=== PATIENT | male | born 1970 | race Caucasian/White ===

== ENCOUNTER → 2016-12-23 | Outpatient (CLI) | payer BC, OTHER | END | disposition home or self-care (01) | LOC: C.LABPBG 13:47 | PROVIDERS: ATTEND Internal Medicine | DX: R31.0 Gross hematuria (principal) ==

== ENCOUNTER → 2017-02-14 | Outpatient (CLI) | payer BC | END | disposition home or self-care (01) | LOC: C.PATHSPEC 16:55 | PROVIDERS: ATTEND Urology | DX: R31.0 Gross hematuria (principal) ==

== ENCOUNTER → 2017-03-22 | Outpatient (CLI) | payer BC ==
[~2017-03-22] MED LIST: OPTIRAY 320 IV PRN; PATIENT'S ALLERGY INFO NEEDS ENTERED SCH
--- NOTE | 2017-03-22 15:57 | DIAGNOSTIC IMAGING REPORT ---
ABD/PELVIS COMBO CT DOSE: 622.38 mGy.cm HISTORY: N41.1 Chronic [id number] Gross hematuriano latex allergy, TECHNIQUE: Multiaxial CT images of the abdomen and pelvis were performed pre and post intravenous contrast enhancement. A dose lowering technique was utilized adhering to the principles of ALARA. COMPARISON STUDY: 02/13/2016 FINDINGS: Lung bases are clear. Liver spleen and pancreas enhance uniformly. There is a nonenhancing right renal cyst upper pole right kidney measuring 3 cm. This is unchanged compared to the prior study. 3-dimensional evaluation of the urinary tracts show ureters to be normal in course and caliber. There are no significant filling defects. There bladder is midline. There are several pelvic vascular calcifications unaltered from the prior study. There are findings of mild sigmoid diverticulitis. There is a trace amount pericolonic infiltrative change. No evidence for abscess or collection. IMPRESSION: 1. 3 cm upper pole right renal cyst unaltered from the prior study. 2. No evidence for space-occupying lesion or obstructive process the urinary tracts. 3. Mild sigmoid diverticulitis with no evidence for abscess collection or obstruction. The above report was generated using voice recognition software. It may contain grammatical, syntax or spelling errors. Electronically signed by: Jarrod Moctezuma M.D. 03/22/2017 3:56 PM Dictated Date/Time: 03/22/2017 3:48 PM
== END | disposition home or self-care (01) ==
LOC: C.CTS 15:21
PROVIDERS: ATTEND Urology
DX: R31.0 Gross hematuria (principal); N41.1 Chronic prostatitis

== ENCOUNTER 2017-04-22 19:49 | Observation (INO) | payer BC ==
[~2017-04-22] VITALS: Ht 177.8 cm; Wt 76.5 kg
[2017-04-22] MEDS ORDERED: PANTOprazole SOD 40 MG TAB PO STA (19:59)
[2017-04-22] MEDS ORDERED: METOPROLOL TARTRATE 1 MG/ML VIAL IV STA (19:59)
[2017-04-22] MEDS ORDERED: ALUMINUM/MAGNESIUM SUSP 30 ML UDC PO STA (19:59)
[2017-04-22] MEDS ORDERED: NITROGLYCERIN OINT 2% 1GM PACKET EXT ONE (20:00)
--- NOTE | 2017-04-22 20:08 | EMERGENCY ROOM VISIT NOTE ---
History Report prepared by Christopher: Medardo Hoffman Under the Supervision of: Dr. Misael Horton D.O. First contact with patient: 19:52 Chief Complaint: CHEST PAIN Stated Complaint: CHEST & ESOPHOGEAL BURNING History of Present Illness The patient is a 47 year old male who presents to the Emergency Room with complaints of persistent burning in his chest starting earlier today. The patient states that he was having some burning across his chest. The patient states that earlier he could feel his heart pounding, and he had a high blood pressure. He states that he has no history of hypertension, though he has a family history of hypertension and heart attacks. The patient was given 3 baby aspirin prior to arrival, and he takes an aspirin daily. He notes that he was diaphoretic earlier as well. He additionally states that he has been taking NyQuil and DayQuil recently, and he last took any around noon. The patient denies any abdominal pain. He denies any smoking and excessive alcohol use. The patient has a history of a hernia repair and bilateral knee surgery. Source of History: patient Onset: earlier today Position: chest Quality: burning Timing: other (persistent) Associated Symptoms: + diaphoresis, No abdominal pain Note: Associated symptoms: High blood pressure Review of Systems See HPI for pertinent positives & negatives. A total of 10 systems reviewed and were otherwise negative. Past Medical & Surgical Surgical Problems: (1) H/O hernia repair (2) H/O knee surgery Family History Heart disease Hypertension Social History Marital Status: Housing Status: lives with family Occupation Status: unemployed Current/Historical Medications Scheduled Aspirin (Aspirin Ec), 81 MG PO DAILY Cephalexin Monohydrate (Keflex), 500 MG PO BID Cetirizine (Zyrtec), 10 MG PO DAILY Scheduled PRN Calcium Carbonate (Tums), 1 DOSE PO UD PRN for ACID Ranitidine Hcl (Zantac), 1 TAB PO DAILY PRN for HEARTBURN Allergies Coded Allergies: Amoxicillin (Unverified Adverse Reaction, Intermediate, STOMACH PAIN, ) Ciprofloxacin (Unverified Adverse Reaction, Intermediate, STOMACH PAIN, ) Physical Exam Vital Signs Date Time Temp Pulse Resp B/P (MAP) Pulse Ox O2 Delivery O2 Flow Rate FiO2 04/22/17 21:19 93 20 170/101 96 Room Air 04/22/17 20:31 88 18 181/104 96 Room Air 04/22/17 20:21 92 180/104 04/22/17 20:01 92 04/22/17 19:53 Room Air 04/22/17 19:53 36.8 95 212/119 97 Physical Exam GENERAL: Patient is awake, alert, and in no acute distress. Patient is resting comfortably and showing no signs of anxiety EYES: The conjunctivae are clear. The pupils are round and reactive. EARS, NOSE, MOUTH AND THROAT: The nose is without any evidence of any deformity. Mucous membranes are moist tongue is midline NECK: The neck is nontender and supple. RESPIRATORY: Normal respiratory effort is noted there is no evidence of wheezing rhonchi or rales CARDIOVASCULAR: Regular rate and rhythm noted there no murmurs rubs or gallops normal S1 normal S2 GASTROINTESTINAL: The abdomen is soft. Bowel sounds are present in all quadrants. Abdomen is nontender MUSCULOSKELETAL/EXTREMITIES: There is no evidence of gross deformity full range of motion is noted in the hips and shoulders SKIN: There is no obvious evidence of any rash. There are no petechiae, pallor or cyanosis noted. NEUROLOGIC: Patient is awake alert and oriented x3 Medical Decision & Procedures ER Provider Diagnostic Interpretation: Radiology results as stated below per my review and radiologist interpretation: CHEST ONE VIEW PORTABLE CLINICAL HISTORY: Pain, radiating to the abdomen. COMPARISON STUDY: No previous studies for comparison. FINDINGS: The cardiac and mediastinal contours are normal. There is no evidence of focal pulmonary consolidation. There is no evidence of failure. No pleural effusions are visualized.[ No free intraperitoneal air is visualized. IMPRESSION: No active disease in the chest. Electronically signed by: Nico Candelaria M.D. 04/22/2017 8:23 PM Dictated Date/Time: 04/22/2017 8:23 PM Laboratory Results 04/22/17 19:28 Red Blood Count 5.07, Mean Corpuscular Volume 90.7, Mean Corpuscular Hemoglobin 31.2, Mean Corpuscular Hemoglobin Concent 34.3, Mean Platelet Volume 10.0, Neutrophils (%) (Auto) 67.4, Lymphocytes (%) (Auto) 23.0, Monocytes (%) (Auto) 8.2, Eosinophils (%) (Auto) 1.1, Basophils (%) (Auto) 0.1, Neutrophils # (Auto) 6.08, Lymphocytes # (Auto) 2.08, Monocytes # (Auto) 0.74, Eosinophils # (Auto) 0.10, Basophils # (Auto) 0.01 04/22/17 19:28 Test 04/22/17 19:28 White Blood Count 9.03 K/uL (4.8-10.8) Red Blood Count 5.07 M/uL (4.7-6.1) Hemoglobin 15.8 g/dL (14.0-18.0) Hematocrit 46.0 % (42-52) Mean Corpuscular Volume 90.7 fL (80-100) Mean Corpuscular Hemoglobin 31.2 pg (25-34) Mean Corpuscular Hemoglobin Concent 34.3 g/dl (32-36) Platelet Count 261 K/uL (130-400) Mean Platelet Volume 10.0 fL (7.4-10.4) Neutrophils (%) (Auto) 67.4 % Lymphocytes (%) (Auto) 23.0 % Monocytes (%) (Auto) 8.2 % Eosinophils (%) (Auto) 1.1 % Basophils (%) (Auto) 0.1 % Neutrophils # (Auto) 6.08 K/uL (1.4-6.5) Lymphocytes # (Auto) 2.08 K/uL (1.2-3.4) Monocytes # (Auto) 0.74 K/uL (0.11-0.59) Eosinophils # (Auto) 0.10 K/uL (0-0.5) Basophils # (Auto) 0.01 K/uL (0-0.2) RDW Standard Deviation 42.0 fL (36.4-46.3) RDW Coefficient of Variation 12.8 % (11.5-14.5) Immature Granulocyte % (Auto) 0.2 % Immature Granulocyte # (Auto) 0.02 K/uL (0.00-0.02) Prothrombin Time 10.1 SECONDS (9.0-12.0) Prothromb Time International Ratio 1.0 (0.9-1.1) Activated Partial Thromboplast Time 28.2 SECONDS (21.0-31.0) Partial Thromboplastin Ratio 1.1 Anion Gap 5.0 mmol/L (3-11) Est Creatinine Clear Calc Drug Dose 97.2 ml/min Estimated GFR () 107.3 Estimated GFR (Non- 92.6 BUN/Creatinine Ratio 11.7 (10-20) Calcium Level 9.1 mg/dl (8.5-10.1) Total Bilirubin 0.4 mg/dl (0.2-1) Direct Bilirubin < 0.1 mg/dl (0-0.2) Aspartate Amino Transf (AST/SGOT) 24 U/L (15-37) Alanine Aminotransferase (ALT/SGPT) 38 U/L (12-78) Alkaline Phosphatase 116 U/L (45-117) Total Creatine Kinase 98 U/L (39-308) Creatine Kinase MB 1.1 ng/ml (0.5-3.6) Creatine Kinase MB Ratio 1.1 (0-3.0) Troponin I < 0.015 ng/ml (0-0.045) Total Protein 8.3 gm/dl (6.4-8.2) Albumin 4.3 gm/dl (3.4-5.0) Lipase 205 U/L (73-393) Laboratory results per my review. Medications Administered Medications (Trade) Dose Ordered Sig/Dina Route Start Time Stop Time Status Last Admin Dose Admin Al Hydroxide/Mg Hydroxide (Maalox Susp) 30 ml NOW STAT PO 04/22/17 19:59 04/22/17 20:00 DC 04/22/17 20:21 30 ML Pantoprazole Sodium (Protonix Tab) 40 mg NOW STAT PO 04/22/17 19:59 04/22/17 20:00 DC 04/22/17 20:22 40 MG Nitroglycerin (Nitroglycerin 2% Oint) 0.5 inch NOW ONCE EXT 04/22/17 20:00 04/22/17 20:01 DC 04/22/17 20:21 0.5 INCH Metoprolol Tartrate (Lopressor Iv) 5 mg NOW STAT IV 04/22/17 19:59 04/22/17 20:00 DC 04/22/17 20:21 5 MG ECG Indication: chest pain Rate (beats per minute): 98 Rhythm: normal sinus Findings: no ectopy, other (LVH noted by voltage criteria. Inferior T wave abnormality noted) Comparison ECG Date: no prior available ED Course 1951: The patient was evaluated in room B6. A complete history and physical examination were performed. 1958: Lopressor 5mg IV, Protonix Tab 40mg PO, Maalox Susp 30ml PO 2000: Nitroglycerin 0.5 inch EXT 2052: I discussed the patient's case with Dr. Robison. The patient will be evaluated for further management. 2054: I reevaluated the patient, and I discussed the treatment plan, and he is agreeable. Medical Decision Differential diagnosis: Etiologies such as cardiac ischemia, aortic dissection, pulmonary embolism, pneumonia, pneumothorax, musculoskeletal, infections, pericarditis, myocarditis , esophageal rupture, gastrointestinal, as well as others were entertained. Additional history was obtained from the prehospital personnel. The patient is a 47-year-old male who presented to the emergency department for an evaluation of discomfort in his chest. The patient does have a family history of early coronary artery disease. The patient does not have a history of hypertension but he was found have significant hypertension prior to arrival. The patient's EKG showed nonspecific inferior changes. The patient was given aspirin prior to arrival. The patient was treated with nitroglycerin and beta blockers Protonix and Maalox in the emergency department. On subsequent reevaluation he was feeling somewhat improved. I discussed the patient's laboratory and radiographic studies with him. I also discussed the limitations of the emergency department workup for chest pain with him. Given his risk factors I discussed his case with the on-call [facility] hospitalist. They've agreed to evaluate the patient in the emergency department for further management and disposition. Medication Reconcilliation Current Medication List: was personally reviewed by me Blood Pressure Screening Patient's blood pressure: Elevated blood pressure Monitored by the hospitalist Consults Time Called: 2049 Consulting Physician: Dr. Robison Returned Call: 2052 I discussed the patient's case with Dr. Robison. The patient will be evaluated for further management. Impression Primary Impression: Substernal chest pain Additional Impressions: Abnormal EKG Hypertension Scribe Attestation The scribe's documentation has been prepared under my direction and personally reviewed by me in its entirety. I confirm that the note above accurately reflects all work, treatment, procedures, and medical decision making performed by me. Departure Information Dispostion Being Evaluated By Hospitalist Referrals Ricki Rankin PA-C (PCP) Patient Instructions My [facility] Problem Qualifiers Additional Impressions: Hypertension Hypertension type: unspecified Qualified Codes: I10 - Essential (primary) hypertension
[2017-04-22 20:11] LABS: BASO % 0.1 %; BASO ABS # 0.01 K/uL (0-0.2); EOS % 1.1 %; HEMOGLOBIN 15.8 g/dL (14.0-18.0); IG# 0.02 K/uL (0.00-0.02); LYMPH ABS # 2.08 K/uL (1.2-3.4); MEAN CELL VOLUME 90.7 fL (80-100); MEAN CORPUSCULAR HEMOGLOBIN 31.2 pg (25-34); MEAN CORPUSCULAR HGB CONC 34.3 g/dl (32-36); MONO % 8.2 %; MONO ABS # 0.74 K/uL (0.11-0.59); NEUT % 67.4 %; NEUT ABS # 6.08 K/uL (1.4-6.5); PLATELET COUNT 261 K/uL (130-400); RED CELL DISTRIBUTION WIDTH CV 12.8 % (11.5-14.5); WHITE BLOOD COUNT 9.03 K/uL (4.8-10.8)
[2017-04-22] MEDS ORDERED: RANITAB33 PO (20:20)
[2017-04-22] MEDS ORDERED: CEPH500C2 PO (20:20)
[2017-04-22] MEDS ORDERED: CETI10TA84 PO (20:20)
[2017-04-22] MEDS ORDERED: CALC500C3 PO (20:20)
[2017-04-22] MEDS ORDERED: ASPI81TA28 PO (20:20)
[2017-04-22 20:22] LABS: PTT PATIENT 28.2 SECONDS (21.0-31.0)
--- NOTE | 2017-04-22 20:25 | DIAGNOSTIC IMAGING REPORT ---
CHEST ONE VIEW PORTABLE CLINICAL HISTORY: Pain, radiating to the abdomen. COMPARISON STUDY: No previous studies for comparison. FINDINGS: The cardiac and mediastinal contours are normal. There is no evidence of focal pulmonary consolidation. There is no evidence of failure. No pleural effusions are visualized.[ No free intraperitoneal air is visualized. IMPRESSION: No active disease in the chest. Electronically signed by: Nico Candelaria M.D. 04/22/2017 8:23 PM Dictated Date/Time: 04/22/2017 8:23 PM
[2017-04-22 20:30] LABS: ALBUMIN 4.3 gm/dl (3.4-5.0); ALT/SGPT 38 U/L (12-78); AST/SGOT 24 U/L (15-37); BLOOD UREA NITROGEN 11 mg/dl (7-18); CALCIUM 9.1 mg/dl (8.5-10.1); CARBON DIOXIDE 28 mmol/L (21-32); CREATININE 0.97 mg/dl (0.60-1.40); GLUCOSE 97 mg/dl (70-99); LIPASE 205 U/L (73-393); POTASSIUM 3.2 mmol/L (3.5-5.1); SODIUM 134 mmol/L (136-145)
[2017-04-22 20:35] LABS: ALKALINE PHOSPHATASE 116 U/L (45-117); CKMB 1.1 ng/ml (0.5-3.6); TOTAL PROTEIN 8.3 gm/dl (6.4-8.2)
--- NOTE | 2017-04-22 21:10 | History and Physical ---
History & Physical Date & Time of Service: Apr 22, 2017 at 21:09 . Chief Complaint: chest discomfort . Primary Care Physician: Ricki Rankin PA-C . History of Present Illness Source: patient, family, clinic records, hospital records 47 YO male followed by Ricki Rankin PA-C. He enjoys good health. History of episodic hypertension as well as other problems noted below. Physically active. Walks and uses stationary bike without chest pain or dyspnea. Developed cold symptoms over past 1-2 days with nasal congestion and pharyngitis. No fever. Prescribed cephalexin. Taking over the counter cold meds. Today he experienced chest discomfort described as midsternal burning without radiation. [place] somewhat dyspneic. Noted intermittent palpitations. Mild nausea, no emesis. Had some chills, but not fever or sweats. No cough. Took a dose of ranitidine with perhaps temporary benefit of the burning sensation in his chest. Later tried TUMS without any improvement. BP at home was 190/99. Seen at urgent care facility. Noted to have abnormal EKG. Referred to ED for further evaluation. Personal history of episodic hypertension that has not required therapy. Cholesterol status unknown. Does not smoke. Father had MN and CABG at age of 56. Brother has nonocclusive coronary disease. Recent bilateral calf cramps. No pleuritic chest pain. . Past Medical/Surgical History Chronic and Resolved Medical Problems: (1) BPH (benign prostatic hypertrophy) Status: Chronic (2) Hematuria Permanent Comment: cysto by Dr. Best negative Status: Resolved (3) History of renal calculi Status: Chronic (4) Pneumatosis cystoides intestinalis Status: Chronic Surgical Problems: (1) Status post arthroscopic surgery of left knee Status: Chronic (2) Status post arthroscopic surgery of right knee Status: Chronic (3) Status post cystoscopy Status: Chronic (4) Status post hernia repair Status: Chronic , Family History FATHER Coronary artery disease, Onset:56 (MN + CABG) BROTHER Hypertension Coronary artery disease (nonocclusive CAD) Social History Smoking Status: Never Smoker Alcohol Use: occasionally Marital Status: Multi-Drug Resistant Organisms History of MDRO: No Allergies Coded Allergies: Amoxicillin (Unverified Adverse Reaction, Intermediate, STOMACH PAIN, ) Ciprofloxacin (Unverified Adverse Reaction, Intermediate, STOMACH PAIN, ) Home Medications Scheduled Aspirin (Aspirin Ec), 81 MG PO DAILY Cephalexin Monohydrate (Keflex), 500 MG PO BID Cetirizine (Zyrtec), 10 MG PO DAILY Scheduled PRN Calcium Carbonate (Tums), 1 DOSE PO UD PRN for ACID Ranitidine Hcl (Zantac), 1 TAB PO DAILY PRN for HEARTBURN Review of Systems Constitutional: + chills, No fever, No weight loss Eyes: No worsening of vision ENT: + unusual epistaxis (occasional), + nasal symptoms, + sore throat Respiratory: No cough, No dyspnea on exertion Cardiovascular: + problem reported (as noted in HPI) Abdomen: + nausea (mild), No vomiting, No diarrhea, No GI bleeding Musculoskeletal: + joint pain (knees) Genitourinary - Male: No hematuria, No dysuria, No urinary frequency, No urinary hesitancy Endocrine: No excessive thirst, No excessive urination Hematologic / Lymphatic: No abnormal bleeding/bruising, No swollen lymph nodes Integumentary: No rash, No new/changing skin lesions Allergic / Immunologic: + seasonal allergies Physical Exam Vital Signs Date Time Temp Pulse Resp B/P (MAP) Pulse Ox O2 Delivery O2 Flow Rate FiO2 04/22/17 20:31 88 18 181/104 96 Room Air 04/22/17 20:21 92 180/104 04/22/17 20:01 92 04/22/17 19:53 Room Air 04/22/17 19:53 36.8 95 212/119 97 General Appearance: WD/WN, no apparent distress Head: normocephalic, atraumatic Eyes: normal inspection, PERRL, EOMI, sclerae normal ENT: normal ENT inspection, hearing grossly normal, pharynx normal Neck: supple, no adenopathy, thyroid normal, no JVD, trachea midline Respiratory/Chest: lungs clear, no respiratory distress, no accessory muscle use Cardiovascular: regular rate, rhythm, no edema, no JVD, no murmur, normal peripheral pulses, + gallop/S4, + pertinent finding (carotids 2/2 bilat) Abdomen/GI: normal bowel sounds, non tender, soft, no organomegaly, no pulsatile mass Extremities/Musculoskelatal: normal inspection, no calf tenderness, normal capillary refill, no pedal edema Neurologic/Psych: bioinformaticist II-XII nml as tested (PERRL, EOMI, no facial palsy, no dysarthria), no motor/sensory deficits, alert, normal mood/affect, oriented x 3 Skin: normal color, warm/dry, no rash Lymphatic: no adenopathy (cervical) Diagnostics Laboratory Results Results Past 24 Hours Test 04/22/17 19:28 Range/Units White Blood Count 9.03 4.8-10.8 K/uL Red Blood Count 5.07 4.7-6.1 M/uL Hemoglobin 15.8 14.0-18.0 g/dL Hematocrit 46.0 42-52 % Mean Corpuscular Volume 90.7 80-100 fL Mean Corpuscular Hemoglobin 31.2 25-34 pg Mean Corpuscular Hemoglobin Concent 34.3 32-36 g/dl Platelet Count 261 130-400 K/uL Mean Platelet Volume 10.0 7.4-10.4 fL Neutrophils (%) (Auto) 67.4 % Lymphocytes (%) (Auto) 23.0 % Monocytes (%) (Auto) 8.2 % Eosinophils (%) (Auto) 1.1 % Basophils (%) (Auto) 0.1 % Neutrophils # (Auto) 6.08 1.4-6.5 K/uL Lymphocytes # (Auto) 2.08 1.2-3.4 K/uL Monocytes # (Auto) 0.74 0.11-0.59 K/uL Eosinophils # (Auto) 0.10 0-0.5 K/uL Basophils # (Auto) 0.01 0-0.2 K/uL RDW Standard Deviation 42.0 36.4-46.3 fL RDW Coefficient of Variation 12.8 11.5-14.5 % Immature Granulocyte % (Auto) 0.2 % Immature Granulocyte # (Auto) 0.02 0.00-0.02 K/uL Prothrombin Time 10.1 9.0-12.0 SECONDS Prothromb Time International Ratio 1.0 0.9-1.1 Activated Partial Thromboplast Time 28.2 21.0-31.0 SECONDS Partial Thromboplastin Ratio 1.1 Sodium Level 134 136-145 mmol/L Potassium Level 3.2 3.5-5.1 mmol/L Chloride Level 101 98-107 mmol/L Carbon Dioxide Level 28 21-32 mmol/L Anion Gap 5.0 3-11 mmol/L Blood Urea Nitrogen 11 7-18 mg/dl Creatinine 0.97 0.60-1.40 mg/dl Est Creatinine Clear Calc Drug Dose 97.2 ml/min Estimated GFR () 107.3 Estimated GFR (Non- 92.6 BUN/Creatinine Ratio 11.7 10-20 Random Glucose 97 70-99 mg/dl Calcium Level 9.1 8.5-10.1 mg/dl Total Bilirubin 0.4 0.2-1 mg/dl Direct Bilirubin < 0.1 0-0.2 mg/dl Aspartate Amino Transf (AST/SGOT) 24 15-37 U/L Alanine Aminotransferase (ALT/SGPT) 38 12-78 U/L Alkaline Phosphatase 116 45-117 U/L Total Creatine Kinase 98 39-308 U/L Creatine Kinase MB 1.1 0.5-3.6 ng/ml Creatine Kinase MB Ratio 1.1 0-3.0 Troponin I < 0.015 0-0.045 ng/ml Total Protein 8.3 6.4-8.2 gm/dl Albumin 4.3 3.4-5.0 gm/dl Lipase 205 73-393 U/L Diagnostic Radiology Chest x-ray reviewed by undersigned and interpreted formally by Radiology: FINDINGS: The cardiac and mediastinal contours are normal. There is no evidence of focal pulmonary consolidation. There is no evidence of failure. No pleural effusions are visualized.[ No free intraperitoneal air is visualized. IMPRESSION: No active disease in the chest. Electronically signed by: Nico Candelaria M.D. 04/22/2017 8:23 PM Dictated Date/Time: 04/22/2017 8:23 PM . EKG EKG performed at 19:54 reviewed and demonstrated NSR at 98 / minute, LVH, inverted T-waves III, flattened T-waves aVF. . Impression Assessment and Plan CHEST DISCOMFORT Patient experiencing nonexertional chest discomfort at noted in HPI. Must consider ACS, but symptoms may be related to elevated BP or GERD. Check serial cardiac markers and EKG's. Check fasting lipid profile. Check rest echo. Empiric PPI. Consult Cardiology. HYPERTENSIVE URGENCY History of episodic elevations of blood pressure associated with discomfort or stress in past, not requiring treatment. BP at home today 190/99. BP upon arrival to ED 212/119. Hypokalemia raises possibility of renovascular disease, hyperaldosteronism, or hypercortisolism. Start metoprolol tartrate 25 mg BID, then titrate Rx. Outpatient work-up for secondary hypertension recommended. Avoid decongestants. HYPOKALEMIA K = 3.2. No vomiting or diarrhea. Not taking any diuretics. PO replacement. Check Mg. Outpatient work-up for secondary hypertension as noted above. BILATERAL LEG CRAMPS Exam benign. Check venous duplex. Correct hypokalemia. SINUS CONGESTION / PHARYNGITIS Probable viral illness. Check DIRECTOR OF OPTIMIZATION swab for influenza A/B. Probably no need for antibiotic therapy. VTE PROPHYLAXIS Very low risk (0.4% per IMPROVE risk score). Prophylaxis not indicated. Ambulate. DISPOSITION Observation status on Telemetry Unit. Expected discharge to home. Primary Care follow-up with Ricki Rankin PA-C. . VTE Prophylaxis Given or contraindicated: Treatment not indicated
[2017-04-22] MEDS ORDERED: ACETAMINOPHEN 325 MG TAB PO PRN (21:15)
[2017-04-22] MEDS ORDERED: NITROGLYCERIN 0.4 MG SL PER TAB CHARGE SL PRN (21:15)
[2017-04-22] MEDS ORDERED: IV FLUIDS COMPLETED PRN (21:30)
[2017-04-22] MEDS ORDERED: METOPROLOL TARTRATE 25 MG TAB PO ONE (22:12)
[2017-04-22] MEDS ORDERED: POTASSIUM CHLORIDE 20 MEQ TABCR PO ONE (22:15)
[2017-04-22] MEDS ORDERED: METOPROLOL TARTRATE 1 MG/ML VIAL IV PRN (22:15)
[2017-04-22] MEDS ORDERED: ALUMINUM/MAGNESIUM/SIMETH (MAALOX MAX) 30 ML UDC PO PRN (22:15)
--- NOTE | 2017-04-22 22:15 | NUR ---
arrived from the ED via liter for admission to room 238-2, awake and alert, denies discomfort at this time, ambulates to bed, playground monitor applied, admission nursing assessment complete, code word established, fall safety paper signed
[2017-04-22 22:32] VITALS: BP 194/102; PULSE 82; TEMP 36.9; O2SAT 94; Ht 177.8 cm; Wt 76.5 kg
[2017-04-22 23:18] VITALS: BP 160/88
--- NOTE | 2017-04-22 23:19 | NUR ---
BP RECHECK PRIOR TO MED ADMINISTRATION.
[2017-04-23] VITALS (8 sets, daily range): BP systolic 131–186; BP diastolic 77–109; PULSE 68–87; TEMP 36.7–37.2; O2SAT 95–97
--- NOTE | 2017-04-23 00:29 | NUR ---
OFF FLOOR FOR US
[2017-04-23 00:38] LABS: INFLUENZA A PCR Neg for Influ A (NEG); INFLUENZA B PCR Neg for Influ B (NEG)
--- NOTE | 2017-04-23 00:46 | NUR ---
RETURN FROM US- LABS DRAWN AT THIS TIME-PENDING RESULTS
--- NOTE | 2017-04-23 04:00 | NUR ---
pt denies chest pain, manual bp check improved labs and cardiology consult pending this am
[2017-04-23 07:07] LABS: BLOOD UREA NITROGEN 10 mg/dl (7-18); CALCIUM 9.1 mg/dl (8.5-10.1); CARBON DIOXIDE 29 mmol/L (21-32); CHOLESTEROL 233 mg/dl (0-200); GLUCOSE 91 mg/dl (70-99); POTASSIUM 3.9 mmol/L (3.5-5.1); SODIUM 139 mmol/L (136-145)
[2017-04-23 07:15] LABS: LDL CHOLESTEROL CALCULATED 156 mg/dl
--- NOTE | 2017-04-23 07:21 | DIAGNOSTIC IMAGING REPORT ---
BILATERAL LOWER EXTREMITY VENOUS DOPPLER HISTORY: bilat calf pain COMPARISON STUDY: None. FINDINGS: There is normal compressibility, flow, and augmentation within the bilateral lower extremity deep venous systems. IMPRESSION: No DVT within the right or left lower extremity. Electronically signed by: Julio César Hernandez M.D. 04/23/2017 7:19 AM Dictated Date/Time: 04/23/2017 7:19 AM
[2017-04-23] MEDS ORDERED: INFLUENZA ADMINISTRATION CHARGE ONE (08:00)
[2017-04-23] MEDS ORDERED: INFLUENZA VIRUS QUAD VACCINE 0.5 ML SYR IM. ONE (08:00)
--- NOTE | 2017-04-23 08:00 | NUR ---
a:id/pt alert in bed.currently denies complaints. pt is from home, independent in room. assessment completed. awaiting cardiology to see patient. npo until then. call caldwell in reach will cont to monitor.
[2017-04-23] MEDS: ASPIRIN 81 MG ECTAB PO SCH (08:41)
[2017-04-23] MEDS: PANTOprazole SOD 40 MG TAB PO SCH ×2 (08:41→20:10)
[2017-04-23] MEDS: CETIRIZINE HCL 10 MG TAB PO SCH (08:41)
[2017-04-23] MEDS: METOPROLOL TARTRATE 25 MG TAB PO SCH ×2 (08:42→20:11)
[2017-04-23] MEDS ORDERED: ASPIRIN 81 MG ECTAB PO SCH (09:00)
[2017-04-23] MEDS ORDERED: VALSARTAN 80 MG TAB PO ONE (11:30)
--- NOTE | 2017-04-23 11:59 | NUR ---
PT REASSESSED. NO COMPLAINTS. NEW MEDICATION INFORMATION GIVEN ON VALSARTAN. ADMINISTERED PER ORDER. CALL WHEELER IN REACH WILL CONT TO MONITOR.
--- NOTE | 2017-04-23 12:26 | CARDIOLOGY CONSULTATION ---
DATE OF CONSULTATION: 04/23/2017 CONSULTATION FOR: [facility] joseph. REASON FOR CONSULTATION: Chest pain and hypertension. HISTORY OF PRESENT ILLNESS: This is a 47-year-old male patient, who generally enjoys good health. He does have a history of GERD, for which he takes p.r.n. doses of Tums or PPI. On the day of admission, he was having some epigastric discomfort. He did not think much of it because he has had this before. Later on, he felt his heart was pounding. No real chest pain. He had no shortness of breath, arm or neck discomfort. He decided to check his blood pressure and he was markedly hypertensive. He went to the urgent care in [place] and then was transferred for an admission here at [facility]. He currently has no complaints. After admission, his cardiac markers have been negative. His EKG shows left ventricular hypertrophy, but no acute changes. ALLERGIES: AMOXICILLIN AND CIPROFLOXACIN. PAST MEDICAL HISTORY: As outlined in the history of chief complaint. He does have a history of GERD. He has also had a history of renal calculi. He passed a kidney stone several years ago and has had no additional problems. He has a history of benign prostatic hypertrophy. No prior history of heart disease, diabetes or strokes. No medical renal disease. He states that in the past, he has been hypertensive, but in general, he is asked to sit for several minutes and they have rechecked his blood pressure, then it is markedly improved. FAMILY MEDICAL HISTORY: Significant for father at age 56, who underwent a coronary artery bypass surgery. SOCIAL HISTORY: The patient lives with his . He is a never smoker. REVIEW OF SYSTEMS: A 10-point review of systems is negative except for the history of chief complaint. PHYSICAL EXAMINATION: GENERAL: He is alert and oriented, in no acute distress. VITAL SIGNS: Blood pressure is 178/100 and pulse is regular at 80 beats per minute. He is afebrile. HEENT: He is normocephalic. Pupils are equal and reactive to light. Extraocular muscles are intact bilaterally. NECK: The neck veins are flat. Carotids have good upstrokes bilaterally without bruits. Thyroid is nonpalpable. RESPIRATORY: Breath sounds equal bilaterally and clear to auscultation. CARDIOVASCULAR: Heart has a regular rhythm. Normal S1 and S2. No S3 or S4. No cardiac rubs or murmurs. GASTROINTESTINAL: Abdomen is soft and nontender without organomegaly. EXTREMITIES: Free of edema, digit clubbing, or cyanosis. NEUROLOGIC: Grossly intact. SKIN: Warm to touch. LYMPH NODES: Negative to palpation. LABORATORY DATA: Creatinine is 0.9 and potassium is 3.9. Hemoglobin is 15.8. IMPRESSION: Hypertensive urgency. RECOMMENDATIONS: The patient is ruled out for myocardial infarction and I believe after my interview with him that his discomfort is definitely atypical for an acute coronary syndrome. I would recommend to bring his blood pressure under control. He was started on metoprolol and I will add valsartan to his current medical regimen as he remains hypertensive. His EKG suggests left ventricular hypertrophy, which may indicate that his blood pressure over time has not been well controlled. He did have an echocardiogram, which I will review. If we bring his blood pressure down and he remains stable without any additional symptoms, then he may be discharged home to outpatient followup.
--- NOTE | 2017-04-23 12:56 | ECHOCARDIOGRAM REPORT ---
*NOTICE TO RECEIVING REPUBLICAN AGENCY This information is strictly Confidential and protected under [place] law. [place] law prohibits you from making any further disclosure of this information unless further disclosure is expressly permitted by the written consent of the person to whom it pertains or is authorized by law. A general authorization for the release of medical or other information is not sufficient for this purpose. Hospital accepts no responsibility if the information is made available to any other person, INCLUDING THE PATIENT. Interpretation Summary * Name: SANTOS ALICEA Study Date: 04/23/2017 07:05 AM BP: 170/87 mmHg * Patient Location: C.2T\S\S238\S\2 HR: 79 * : 1970 (M/d/yyyy) Gender: Male Height: 70 in * Age: 47 yrs Ethnicity: [place] Weight: 176 lb * Ordering Physician: Tony Robison * Referring Physician: No Doctor, Assigned * Performed By: Carlie Lan RDCS * * Reason For Study: Chest Pain * BSA: 2.0 m2 * -- Conclusions -- * The left ventricle is normal in size. * There is mild concentric left ventricular hypertrophy. * Left ventricular systolic function is normal. * Ejection Fraction = 55-60%. * The left ventricular wall motion is normal. * The right ventricular systolic function is normal. * No significant valvular heart disease. Procedure Details * A complete two-dimensional transthoracic echocardiogram was performed (2D, M-mode, Doppler and color flow Doppler). Left Ventricle * The left ventricle is normal in size. * There is mild concentric left ventricular hypertrophy. * Ejection Fraction = 55-60%. * Left ventricular systolic function is normal. * The left ventricular wall motion is normal. Right Ventricle * The right ventricle is normal size. * The right ventricular systolic function is normal. Atria * The left atrial size is normal. * Right atrial size is normal. * The interatrial septum is intact with no evidence for an atrial septal defect. Mitral Valve * The mitral valve is normal in structure and function. * Significant mitral regurgitation is absent. Tricuspid Valve * The tricuspid valve is normal in structure and function. * Significant tricuspid regurgitation is absent. Aortic Valve * The aortic valve is normal in structure and function. Pericardium/Pleural * There is no pericardial effusion. MMode 2D Measurements and Calculations IVSd 1.2 cm IVSs 1.8 cm LVIDd 3.7 cm LVIDs 2.5 cm LVPWd 1.2 cm LVPWs 1.7 cm IVS/LVPW 10 FS 32.4 % EDV(Teich) 58.1 ml ESV(Teich) 22.3 ml EF(Teich) 61.5 % EDV(cubed) 50.6 ml ESV(cubed) 15.6 ml EF(cubed) 69.1 % % IVS thick 47.9 % % LVPW thick 37.5 % LV mass(C)d 148.5 grams LV mass(C)dI 75.1 grams/m\S\2 LV mass(C)s 162.4 grams LV mass(C)sI 82.1 grams/m\S\2 SV(Teich) 35.8 ml SI(Teich) 18.1 ml/m\S\2 SV(cubed) 35.0 ml SI(cubed) 17.7 ml/m\S\2 Ao root diam 3.2 cm Ao root area 8.0 cm\S\2 ACS 2.2 cm LA dimension 3.6 cm LA/Ao 1.1 LVAd ap4 35.0 cm\S\2 LVLd ap4 8.7 cm EDV(MOD-sp4) 114.9 ml EDV(sp4-el) 119.5 ml LVAs ap4 18.2 cm\S\2 LVLs ap4 6.9 cm ESV(MOD-sp4) 41.3 ml ESV(sp4-el) 41.0 ml EF(MOD-sp4) 64.1 % EF(sp4-el) 65.7 % LVAd ap2 29.3 cm\S\2 LVLd ap2 8.8 cm EDV(MOD-sp2) 82.5 ml EDV(sp2-el) 83.3 ml LVAs ap2 15.9 cm\S\2 LVLs ap2 6.7 cm ESV(MOD-sp2) 33.1 ml ESV(sp2-el) 32.0 ml EF(MOD-sp2) 59.9 % EF(sp2-el) 61.6 % LVLd %diff 0.61 % EDV(MOD-bp) 97.4 ml LVLs %diff -2.84 % ESV(MOD-bp) 37.4 ml EF(MOD-bp) 61.6 % SV(MOD-sp4) 73.6 ml SI(MOD-sp4) 37.2 ml/m\S\2 SV(MOD-sp2) 49.4 ml SI(MOD-sp2) 25.0 ml/m\S\2 SV(MOD-bp) 60.0 ml SI(MOD-bp) 30.4 ml/m\S\2 SV(sp4-el) 78.5 ml SI(sp4-el) 39.7 ml/m\S\2 SV(sp2-el) 51.3 ml SI(sp2-el) 25.9 ml/m\S\2 Doppler Measurements and Calculations MV E max wendi 78.2 cm/sec MV A max wendi 69.0 cm/sec MV E/A 1.1 MV dec time 0.19 sec Ao V2 max 138.0 cm/sec Ao max PG 7.6 mmHg Ao max PG (full) 1.7 mmHg LV V1 max PG 5.9 mmHg LV V1 max 121.7 cm/sec PA V2 max 131.1 cm/sec PA max PG 6.9 mmHg PI max wendi 137.2 cm/sec PI max PG 7.5 mmHg PI dec slope 189.9 cm/sec\S\2 PI P1/2t 211.6 msec
--- NOTE | 2017-04-23 14:05 | Progress Note ---
Subjective Date of Service: Apr 23, 2017. Subjective Pt evaluation today including: conversation w/ patient, physical exam, lab review, review of studies, review of inpatient medication list Saw/examined the patient in room 238 He's doing well, states he came in secondary to high blood pressure and upper respiratory infection also c/o heart burning in the center of the chest symptoms have resolved currently and he is symptom-free Problem List Medical Problems: (1) Abnormal EKG Status: Acute (2) Hypertension Status: Acute (3) Substernal chest pain Status: Acute Review of Systems Constitutional: No fever, No chills Respiratory: No cough, No sputum, No wheezing, No shortness of breath, No dyspnea on exertion, No dyspnea at rest, No hemoptysis Cardiac: No chest pain, No edema, No palpitations Abdomen: No nausea, No vomiting Heme: No abnormal bleeding/bruising Medications Current Inpatient Medications Medications (Trade) Dose Ordered Sig/Dina Route Start Time Stop Time Status Last Admin Dose Admin Acetaminophen (Tylenol Tab) 650 mg Q4H PRN PO 04/22/17 21:15 05/22/17 21:14 Nitroglycerin (Nitrostat Tab) 0.4 mg UD PRN SL 04/22/17 21:15 05/22/17 21:14 Miscellaneous (Iv Fluids Completed) 1 ea PRN PRN N/A 04/22/17 21:30 04/22/18 21:29 Metoprolol Tartrate (Lopressor Tab) 25 mg BID PO 04/23/17 09:00 05/23/17 08:59 04/23/17 08:42 25 MG Metoprolol Tartrate (Lopressor Iv) 5 mg Q2H PRN IV 04/22/17 22:15 05/22/17 22:14 Pantoprazole Sodium (Protonix Tab) 40 mg BID PO 04/23/17 09:00 05/23/17 08:59 04/23/17 08:41 40 MG Al Hydrox/Mg Hydrox/Simethicone (Maalox Max Susp) 15 ml Q6H PRN PO 04/22/17 22:15 05/22/17 22:14 Aspirin (Ecotrin Tab) 81 mg DAILY PO 04/23/17 09:00 05/23/17 08:59 04/23/17 08:41 81 MG Cetirizine HCl (zyrTEC TAB) 10 mg DAILY PO 04/23/17 09:00 05/23/17 08:59 04/23/17 08:41 10 MG Valsartan (Diovan Tab) 80 mg QAM PO 04/24/17 09:00 05/24/17 08:59 Objective Vital Signs Date Time Temp Pulse Resp B/P (MAP) Pulse Ox O2 Delivery O2 Flow Rate FiO2 04/23/17 12:00 Room Air 04/23/17 11:49 36.9 68 20 174/95 (121) 96 Room Air 04/23/17 08:00 Room Air 04/23/17 07:30 37.1 87 20 176/98 (124) 96 Room Air 04/23/17 04:00 Room Air 04/23/17 03:40 37.2 79 18 170/87 (114) 97 Room Air 04/23/17 03:21 150/84 (106) 04/23/17 00:02 Room Air 04/22/17 23:18 160/88 (112) 04/22/17 22:32 36.9 82 20 194/102 94 Room Air 04/22/17 21:48 94 20 177/110 96 Room Air 04/22/17 21:19 93 20 170/101 96 Room Air 04/22/17 20:31 88 18 181/104 96 Room Air 04/22/17 20:21 92 180/104 04/22/17 20:01 92 04/22/17 19:53 Room Air 04/22/17 19:53 36.8 95 212/119 97 Physical Exam General Appearance: no apparent distress Respiratory/Chest: chest non-tender, lungs clear, normal breath sounds, no respiratory distress, no accessory muscle use Cardiovascular: regular rate, rhythm, no edema, no gallop, no JVD, no murmur Abdomen: normal bowel sounds, non tender, soft Extremities: normal inspection, no pedal edema Neurologic/Psychiatric: no motor/sensory deficits, alert, normal mood/affect Laboratory Results Last 24 Hours Test 04/22/17 19:28 04/22/17 23:40 04/23/17 00:45 04/23/17 06:05 White Blood Count 9.03 K/uL Red Blood Count 5.07 M/uL Hemoglobin 15.8 g/dL Hematocrit 46.0 % Mean Corpuscular Volume 90.7 fL Mean Corpuscular Hemoglobin 31.2 pg Mean Corpuscular Hemoglobin Concent 34.3 g/dl Platelet Count 261 K/uL Mean Platelet Volume 10.0 fL Neutrophils (%) (Auto) 67.4 % Lymphocytes (%) (Auto) 23.0 % Monocytes (%) (Auto) 8.2 % Eosinophils (%) (Auto) 1.1 % Basophils (%) (Auto) 0.1 % Neutrophils # (Auto) 6.08 K/uL Lymphocytes # (Auto) 2.08 K/uL Monocytes # (Auto) 0.74 K/uL Eosinophils # (Auto) 0.10 K/uL Basophils # (Auto) 0.01 K/uL RDW Standard Deviation 42.0 fL RDW Coefficient of Variation 12.8 % Immature Granulocyte % (Auto) 0.2 % Immature Granulocyte # (Auto) 0.02 K/uL Prothrombin Time 10.1 SECONDS Prothromb Time International Ratio 1.0 Activated Partial Thromboplast Time 28.2 SECONDS Partial Thromboplastin Ratio 1.1 Sodium Level 134 mmol/L 139 mmol/L Potassium Level 3.2 mmol/L 3.9 mmol/L Chloride Level 101 mmol/L 104 mmol/L Carbon Dioxide Level 28 mmol/L 29 mmol/L Anion Gap 5.0 mmol/L 5.0 mmol/L Blood Urea Nitrogen 11 mg/dl 10 mg/dl Creatinine 0.97 mg/dl 0.90 mg/dl Est Creatinine Clear Calc Drug Dose 97.2 ml/min 104.8 ml/min Estimated GFR () 107.3 117.5 Estimated GFR (Non- 92.6 101.4 BUN/Creatinine Ratio 11.7 10.9 Random Glucose 97 mg/dl 91 mg/dl Calcium Level 9.1 mg/dl 9.1 mg/dl Total Bilirubin 0.4 mg/dl Direct Bilirubin < 0.1 mg/dl Aspartate Amino Transf (AST/SGOT) 24 U/L Alanine Aminotransferase (ALT/SGPT) 38 U/L Alkaline Phosphatase 116 U/L Total Creatine Kinase 98 U/L Creatine Kinase MB 1.1 ng/ml Creatine Kinase MB Ratio 1.1 Troponin I < 0.015 ng/ml < 0.015 ng/ml < 0.015 ng/ml Total Protein 8.3 gm/dl Albumin 4.3 gm/dl Lipase 205 U/L Influenza Type A (RT-PCR) Neg for Influ A Influenza Type B (RT-PCR) Neg for Influ B Magnesium Level 2.5 mg/dl Triglycerides Level 166 mg/dl Cholesterol Level 233 mg/dl HDL Cholesterol 44 mg/dl LDL Cholesterol, Calculated 156 mg/dl VLDL Cholesterol, Calculated 33 mg/dl Cholesterol/HDL Ratio 5.3 Assessment and Plan This is a 47 year old male with no significant PMH presents secondary to high blood pressure and reflux-like symptoms Hypertensive Urgency blood pressure >200/100 on admission started on metoprolol 25mg BID also started on Valsartan monitor BP - if controlled can d/c on these medications Chest Pain cardiac enzymes negative x3 no significant findings on echo EKG with no ST-T wave changes likely related to GERD/reflux GERD currently on Protonix and Zantac will d/c on Prilosec OTC with outpatient PCP f/u Elevated Total Cholesterol LDL is 156 total cholesterol is >200 counseled on dietary changes on OTC fish oils DVT ppx ambulation FULL CODE
--- NOTE | 2017-04-23 16:00 | NUR ---
PT REASSESSED. C/O HEADACHE, DECLINED TYLENOL AT THIS TIME. CURRENTLY NO COMPLAINTS. CALL WHEELER IN REACH WILL CONT TO MONITOR.
--- NOTE | 2017-04-23 16:00 | NUR ---
pt was found sideways on bed and hypoxic on room air. placed patient in upright position and reapplied oxy mask. pt continues to display increased work of breathing. iv lasix not successful with output. pt refusing bipap. on 3l oxy mask. is aware. audible wheezing throughout . further assessment completed. doctor is calling family at this time. all caldwell in reach, bed alarm on. will cont to monitor. Addendum: 04/23/17 at 1632 by Nickie Martinez RN WRONG PATIENT
--- NOTE | 2017-04-23 18:16 | NUR ---
pt is now comfort care only. iv morphine 1mg x2 administered per md order. doctor declined to order palliative care cx, heparin drip d/c'd. request made to transfer pt to medical floor and private room. family at bedside. will monitor closely. Addendum: 04/23/17 at 1818 by Nickie Martinez RN WRONG PATIENT
--- NOTE | 2017-04-23 20:00 | NUR ---
Pt in bed with mild complaints of mild headache. Pt slightly hypertensive. PRN meds given per orders. BP recheck WNL. AAOx4, independent in room. Monitoring HR and BP overnight. Needs addressed and call caldwell in reach.
[2017-04-24] MEDS ORDERED: METOPROLOL TARTRATE 25 MG TAB PO SCH
--- NOTE | 2017-04-24 | NUR ---
Pt resting comfortably in bed with VSS on RA. Reassessment unchanged. Needs addressed and call caldwell in reach.
[2017-04-24 03:05] VITALS: BP 138/84; PULSE 63; TEMP 36.8; O2SAT 97
--- NOTE | 2017-04-24 04:00 | NUR ---
Pt VSS on RA resting in bed. Easily awakens and appropriate. Denies chest pain or SOB. BP WNL. Needs addressed and call caldwell in reach.
[2017-04-24 06:29] LABS: HEMATOCRIT 47.1 % (42-52); HEMOGLOBIN 15.9 g/dL (14.0-18.0); MEAN CELL VOLUME 91.8 fL (80-100); MEAN CORPUSCULAR HGB CONC 33.8 g/dl (32-36); MEAN PLATELET VOLUME 9.6 fL (7.4-10.4); PLATELET COUNT 240 K/uL (130-400); RED CELL DISTRIBUTION WIDTH CV 12.8 % (11.5-14.5); WHITE BLOOD COUNT 9.41 K/uL (4.8-10.8)
[2017-04-24 07:01] LABS: POTASSIUM 4.6 mmol/L (3.5-5.1)
[2017-04-24 07:32] VITALS: BP 149/91; PULSE 79; TEMP 37; O2SAT 96
[2017-04-24] MEDS: PANTOprazole SOD 40 MG TAB PO SCH (08:11)
[2017-04-24] MEDS: METOPROLOL TARTRATE 25 MG TAB PO SCH (08:11)
[2017-04-24] MEDS: ASPIRIN 81 MG ECTAB PO SCH ×2 (08:11→09:02)
[2017-04-24] MEDS: CETIRIZINE HCL 10 MG TAB PO SCH (08:11)
--- NOTE | 2017-04-24 08:52 | NUR ---
A/ID: Assessment completed, see EMR. Alert and oriented X4. VSS. Denies CP or SOB. Lungs clear on room air. OOB independently. Tolerating diet. Voiding. Call caldwell within reach. Verbalizes no needs at this time. Plan for home upon discharge at this time.
[2017-04-24] MEDS ORDERED: VALSARTAN 80 MG TAB PO SCH ×2 (09:00)
[2017-04-24 11:52] VITALS: BP 152/94; PULSE 71; TEMP 37; O2SAT 96
--- NOTE | 2017-04-24 12:08 | Progress Note ---
Subjective Date of Service: Apr 24, 2017. Subjective Pt evaluation today including: conversation w/ patient, physical exam, lab review, review of studies, review of inpatient medication list Saw/examined the patient in room 238 He is doing well today, denies burning or chest pain No shortness of breath upper respiratory symptoms improving Problem List Medical Problems: (1) Abnormal EKG Status: Acute (2) Hypertension Status: Acute (3) Substernal chest pain Status: Acute Review of Systems Constitutional: No fever, No chills Respiratory: No cough, No sputum, No shortness of breath Cardiac: No chest pain, No edema, No palpitations Abdomen: No nausea, No vomiting, No diarrhea Medications Current Inpatient Medications Medications (Trade) Dose Ordered Sig/Dina Route Start Time Stop Time Status Last Admin Dose Admin Acetaminophen (Tylenol Tab) 650 mg Q4H PRN PO 04/22/17 21:15 05/22/17 21:14 04/23/17 18:44 650 MG Nitroglycerin (Nitrostat Tab) 0.4 mg UD PRN SL 04/22/17 21:15 05/22/17 21:14 Miscellaneous (Iv Fluids Completed) 1 ea PRN PRN N/A 04/22/17 21:30 04/22/18 21:29 Metoprolol Tartrate (Lopressor Tab) 25 mg BID PO 04/23/17 09:00 05/23/17 08:59 04/24/17 08:11 25 MG Metoprolol Tartrate (Lopressor Iv) 5 mg Q2H PRN IV 04/22/17 22:15 05/22/17 22:14 04/23/17 19:09 5 MG Pantoprazole Sodium (Protonix Tab) 40 mg BID PO 04/23/17 09:00 05/23/17 08:59 04/24/17 08:11 40 MG Al Hydrox/Mg Hydrox/Simethicone (Maalox Max Susp) 15 ml Q6H PRN PO 04/22/17 22:15 05/22/17 22:14 Aspirin (Ecotrin Tab) 81 mg DAILY PO 04/23/17 09:00 05/23/17 08:59 04/24/17 09:02 81 MG Cetirizine HCl (zyrTEC TAB) 10 mg DAILY PO 04/23/17 09:00 05/23/17 08:59 04/24/17 08:11 10 MG Valsartan (Diovan Tab) 80 mg QAM PO 04/24/17 09:00 05/24/17 08:59 04/24/17 08:11 80 MG Objective Vital Signs Date Time Temp Pulse Resp B/P (MAP) Pulse Ox O2 Delivery O2 Flow Rate FiO2 04/24/17 11:52 37.0 71 18 152/94 (113) 96 Room Air 04/24/17 08:01 Room Air 04/24/17 07:32 37.0 79 16 149/91 (110) 96 Room Air 04/24/17 04:00 Room Air 04/24/17 03:05 36.8 63 14 138/84 (102) 97 Room Air 04/24/17 00:00 Room Air 04/23/17 23:03 36.8 70 14 131/77 (95) 95 Room Air 04/23/17 20:11 149/88 (108) 04/23/17 20:00 Room Air 04/23/17 19:09 86 186/109 04/23/17 18:45 36.7 81 18 186/109 (134) 97 Room Air 04/23/17 16:00 Room Air 04/23/17 15:51 37.0 78 18 153/83 (106) 96 Room Air Physical Exam General Appearance: no apparent distress Respiratory/Chest: chest non-tender, lungs clear, normal breath sounds, no respiratory distress, no accessory muscle use Cardiovascular: regular rate, rhythm, no edema, no murmur Laboratory Results Last 24 Hours Test 04/24/17 06:18 White Blood Count 9.41 K/uL Red Blood Count 5.13 M/uL Hemoglobin 15.9 g/dL Hematocrit 47.1 % Mean Corpuscular Volume 91.8 fL Mean Corpuscular Hemoglobin 31.0 pg Mean Corpuscular Hemoglobin Concent 33.8 g/dl RDW Standard Deviation 43.0 fL RDW Coefficient of Variation 12.8 % Platelet Count 240 K/uL Mean Platelet Volume 9.6 fL Sodium Level 136 mmol/L Potassium Level 4.6 mmol/L Chloride Level 103 mmol/L Carbon Dioxide Level 29 mmol/L Anion Gap 4.0 mmol/L Blood Urea Nitrogen 19 mg/dl Creatinine 1.00 mg/dl Est Creatinine Clear Calc Drug Dose 94.3 ml/min Estimated GFR () 103.4 Estimated GFR (Non- 89.2 BUN/Creatinine Ratio 18.5 Random Glucose 96 mg/dl Calcium Level 9.0 mg/dl Assessment and Plan This is a 47 year old male with no significant PMH presents secondary to high blood pressure and reflux-like symptoms Hypertensive Urgency 04/24 increased Valsartan to 160mg continue metoprolol continue aspirin 81mg stable for d/c home today 04/23 blood pressure >200/100 on admission started on metoprolol 25mg BID also started on Valsartan monitor BP - if controlled can d/c on these medications Chest Pain cardiac enzymes negative x3 no significant findings on echo EKG with no ST-T wave changes likely related to GERD/reflux GERD currently on Protonix and Zantac will d/c on Prilosec OTC with outpatient PCP f/u Elevated Total Cholesterol LDL is 156 total cholesterol is >200 counseled on dietary changes on OTC fish oils DVT ppx ambulation FULL CODE
[2017-04-24] MEDS ORDERED: LPR25 PO (12:11)
[2017-04-24] MEDS ORDERED: DVN/160 PO (12:11)
[2017-04-24] MEDS ORDERED: VALSARTAN 80 MG TAB PO ONE (12:15)
--- NOTE | 2017-04-24 12:19 | Discharge Instructions ---
Discharge Instructions Date of Service Apr 24, 2017. Admission Reason for Admission: Substernal Chest Pain Discharge Discharge Diagnosis / Problem: Hypertensive Urgency Discharge Goals Goal(s): Decrease discomfort, Improve function, Diagnostic testing, Therapeutic intervention Activity Recommendations Activity Limitations: resume your previous activity . Instructions / Follow-Up Instructions / Follow-Up Please follow-up with your primary care physician You will be discharged on Diovan 160mg daily and Lopressor 25mg twice a day - both of these are for blood pressure Your primary care physician should recheck blood pressure and adjust these accordingly Current Hospital Diet Patient's current hospital diet: AHA Diet (Heart Healthy) Discharge Diet Recommended Diet: AHA Diet (Heart Healthy) Pending Studies Studies pending at discharge: no Laboratory Results Lipid Panel Test 04/23/17 06:05 Range/Units Triglycerides Level 166 H 0-150 mg/dl Cholesterol Level 233 H 0-200 mg/dl HDL Cholesterol 44 mg/dl Cholesterol/HDL Ratio 5.3 LDL Cholesterol, Calculated 156 mg/dl Medical Emergencies . Who to Call and When: Medical Emergencies: If at any time you feel your situation is an emergency, please call 911 immediately. . Non-Emergent Contact Non-Emergency issues call your: Primary Care Provider, Maintenance Inspector . . "Provider Documentation" section prepared by Ana Rosa Huizar. . VTE Core Measure Inpt VTE Proph given/why not?: Treatment not indicated
--- NOTE | 2017-04-24 12:21 | Discharge Summary ---
Discharge Summary Date of Service Apr 24, 2017. Discharge Summary Admission Date: Apr 22, 2017 at 21:12 Discharge Date: Apr 24, 2017 Discharge Disposition: Home Principal Diagnosis: Hypertensive Urgency GERD Medication Reconciliation New Medications: Metoprolol Tartrate (Lopressor) 25 Mg Tab 25 MG PO BID for 30 Days, #60 TAB Valsartan (Diovan) 160 Mg Tab 1 TAB PO DAILY for 30 Days, #30 TAB 5 Refills Continued Medications: Aspirin (Aspirin Ec) 81 Mg Tab 81 MG PO DAILY Calcium Carbonate (Tums) 500 Mg Chew 1 DOSE PO UD PRN for ACID Cetirizine (Zyrtec) 10 Mg Tab 10 MG PO DAILY Ranitidine Hcl (Zantac) Unknown Strength Tab 1 TAB PO DAILY PRN for HEARTBURN Discontinued Medications: Cephalexin Monohydrate (Keflex) 500 Mg Cap 500 MG PO BID Admission Information HPI (per Admitting provider): 47 YO male followed by Ricki Rankin PA-C. He enjoys good health. History of episodic hypertension as well as other problems noted below. Physically active. Walks and uses stationary bike without chest pain or dyspnea. Developed cold symptoms over past 1-2 days with nasal congestion and pharyngitis. No fever. Prescribed cephalexin. Taking over the counter cold meds. Today he experienced chest discomfort described as midsternal burning without radiation. [place] somewhat dyspneic. Noted intermittent palpitations. Mild nausea, no emesis. Had some chills, but not fever or sweats. No cough. Took a dose of ranitidine with perhaps temporary benefit of the burning sensation in his chest. Later tried TUMS without any improvement. BP at home was 190/99. Seen at urgent care facility. Noted to have abnormal EKG. Referred to ED for further evaluation. Personal history of episodic hypertension that has not required therapy. Cholesterol status unknown. Does not smoke. Father had VT and CABG at age of 56. Brother has nonocclusive coronary disease. Recent bilateral calf cramps. No pleuritic chest pain. . Physical Exam (per Admitting): General Appearance: WD/WN, no apparent distress Head: normocephalic, atraumatic Eyes: normal inspection, PERRL, EOMI, sclerae normal ENT: normal ENT inspection, hearing grossly normal, pharynx normal Neck: supple, no adenopathy, thyroid normal, no JVD, trachea midline Respiratory/Chest: lungs clear, no respiratory distress, no accessory muscle use Cardiovascular: regular rate, rhythm, no edema, no JVD, no murmur, normal peripheral pulses, + gallop/S4, + pertinent finding (carotids 2/2 bilat) Abdomen/GI: normal bowel sounds, non tender, soft, no organomegaly, no pulsatile mass Extremities/Musculoskelatal: normal inspection, no calf tenderness, normal capillary refill, no pedal edema 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 (PERRL, EOMI, no facial palsy, no dysarthria), no motor/sensory deficits, alert, normal mood/affect, oriented x 3 Skin: normal color, warm/dry, no rash Lymphatic: no adenopathy (cervical) Hospital Course This is a 47 year old male with no significant PMH presents secondary to high blood pressure and reflux-like symptoms Hypertensive Urgency 04/24 increased Valsartan to 160mg continue metoprolol continue aspirin 81mg stable for d/c home today 04/23 blood pressure >200/100 on admission started on metoprolol 25mg BID also started on Valsartan monitor BP - if controlled can d/c on these medications Chest Pain cardiac enzymes negative x3 no significant findings on echo EKG with no ST-T wave changes likely related to GERD/reflux GERD currently on Protonix and Zantac will d/c on Prilosec OTC with outpatient PCP f/u Elevated Total Cholesterol LDL is 156 total cholesterol is >200 counseled on dietary changes on OTC fish oils DVT ppx ambulation FULL CODE Total time spent on discharge = 25 minutes This includes examination of the patient, discharge planning, medication reconciliation, and communication with other providers. Discharge Instructions Please follow-up with your primary care physician You will be discharged on Diovan 160mg daily and Lopressor 25mg twice a day - both of these are for blood pressure Your primary care physician should recheck blood pressure and adjust these accordingly
--- NOTE | 2017-04-24 12:26 | NUR ---
A: patient resting in room. Denies CP or SOB. VSS. Tolerating diet. OOB independently. Call [facility]dwell within reach. Verbalizes no needs at this time.
[2017-04-24 12:33] VITALS: BP 152/94; PULSE 71; TEMP 37; O2SAT 96
--- NOTE | 2017-04-24 12:44 | PROGRESS NOTE ---
DATE: 04/24/2017 FOLLOWUP VISIT SUBJECTIVE: The patient is a 47-year-old male patient who presented with hypertensive urgency. He has no new cardiac complaints today. His cardiac markers have been negative. EKG shows some early changes due to hypertension, but it is otherwise normal. His cardiac markers have been negative. OBJECTIVE: GENERAL: He is alert and oriented, in no acute distress. VITAL SIGNS: Blood pressure is 150/90 and pulse is regular at 71. He is afebrile. HEENT: He is normocephalic. Pupils are equal and reactive to light. Extraocular muscles are intact bilaterally. NECK: The neck veins are flat. Carotids have good upstrokes bilaterally without bruits. Thyroid is nonpalpable. RESPIRATORY: Breath sounds equal bilaterally and clear to auscultation. CARDIOVASCULAR: Heart has a regular rhythm. Normal S1 and S2. No S3 or S4. No cardiac rubs or murmurs. GASTROINTESTINAL: Abdomen is soft and nontender without organomegaly. EXTREMITIES: Free of edema, clubbing, or cyanosis. NEUROLOGIC: Grossly intact. SKIN: Warm to touch. LYMPH NODES: Negative to palpation. LABORATORY DATA: Potassium is 4.6 and creatinine is 1.0. Hemoglobin is 5.9. IMPRESSION: Hypertensive urgency. RECOMMENDATIONS: I agree with increasing the patient's valsartan. He can be discharged to outpatient followup. I will make arrangements for followup care through our office.
--- NOTE | 2017-04-24 13:52 | NUR ---
A: Patient discharged with all belongings and . Patient refused wheelchair. Discharge instructions given and patient verbalizes understanding. 24 Hr med pack given. Monitor off and in room.
[2017-04-25] MEDS ORDERED: VALSARTAN 80 MG TAB PO SCH (09:00)
== END 2017-04-24 13:54 | disposition home or self-care (01) ==
LOC: EDBD 19:49 → C.EDB 19:51 → C.2T 21:12 → ENRESERV 21:28
PROVIDERS: ADMIT Hospitalist; ATTEND Family Medicine
DX: I16.0 Hypertensive urgency (principal); R07.2 Precordial pain; K21.9 Gastro-esophageal reflux disease without esophagitis; E78.00 Pure hypercholesterolemia, unspecified; E87.6 Hypokalemia; R94.31 Abnormal electrocardiogram [ECG] [EKG]; Z82.49 Family history of ischemic heart disease and other diseases of the circulatory system; Z79.82 Long term (current) use of aspirin; Z87.442 Personal history of urinary calculi